=== PATIENT | female | born 1985 | race Two or more races ===

== ENCOUNTER 2017-05-05 11:27 | Emergency (ER) | payer MEDICAID ==
[~2017-05-05] VITALS: Ht 160 cm; Wt 68.0 kg
[2017-05-05 13:06] VITALS: BP 127/78
[2017-05-05] MEDS ORDERED: EPINEPHrine HCL 1 MG/1 ML AMP SC ONE (13:45)
== END 2017-05-05 14:18 | disposition home or self-care (01) ==
LOC: ER 11:27
DX: T78.40XA Allergy, unspecified, initial encounter (principal); X58.XXXA Exposure to other specified factors, initial encounter
CPT/HCPCS: 96372; 99283; J0171